=== PATIENT | male | born 1950 | race Caucasian/White ===

== ENCOUNTER → 2017-09-19 | Outpatient (CLI) | payer OTHER ==
[~2017-09-19] MED LIST: GADAVIST IV PRN
--- NOTE | 2017-09-20 08:03 | DIAGNOSTIC IMAGING REPORT ---
MRI OF THE BRAIN WITHOUT AND WITH IV CONTRAST CLINICAL HISTORY: Disorientation. Brain tumor removal at age 6. COMPARISON STUDY: None available at time of interpretation. TECHNIQUE: Utilizing a 1.5 Thea magnet and dedicated coil, multiplanar, multiecho imaging of the brain was performed pre and postcontrast administration. IV administration of 10.5 mL of Gadavist contrast was uneventful. FINDINGS: There are no foci of restricted diffusion. No acute intracranial hemorrhage, midline shift or mass effect is present. Mild ventricular dilatation is due to moderate atrophy. Basilar cisterns are patent. There are no extra axial collections. There is no intracranial mass or pathologic enhancement within the brain parenchyma. Of note, there is increased T2 signal with mild enhancement within the right sphenoid wing. There is associated bony hypertrophy. Similar findings extend into the right frontal, temporal and occipital bones with widening of the diploic space. No dural extension is noted. A right sided parietal craniotomy is noted. Scattered white matter T2 hyperintense foci suggest small vessel disease. IMPRESSION: 1. No acute intracranial findings. 2. Abnormal calvarial thickening/widening of the diploic space involving the right temporal, frontal, occipital and parietal bones, most pronounced within the sphenoid wing of the right temporal bone. This finding is nonspecific and may reflect postsurgical change or fibrous dysplasia. Correlation with prior imaging studies, if available, is suggested. In the absence of prior studies, a head CT may be of benefit in evaluation of the osseous findings. 3. Moderate atrophy. Electronically signed by: Joshua Sanford M.D. 09/20/2017 8:01 AM Dictated Date/Time: 09/19/2017 3:04 PM
== END | disposition home or self-care (01) ==
LOC: C.MRIBC 14:07
PROVIDERS: ATTEND Nurse Practitioner
DX: G31.9 Degenerative disease of nervous system, unspecified (principal); R94.02 Abnormal brain scan

== ENCOUNTER 2017-12-02 20:22 | Emergency (ER) | payer OTHER ==
[~2017-12-02] VITALS: Ht 175.3 cm; Wt 96.1 kg
[2017-12-02 20:28] VITALS: TEMP 36.7; Ht 175.3 cm; Wt 96.1 kg
[2017-12-02 21:06] LABS: BASO % 0.2 %; BASO ABS # 0.01 K/uL (0-0.2); EOS % 2.9 %; EOS ABS # 0.12 K/uL (0-0.5); HEMATOCRIT 35.3 % (42-52); HEMOGLOBIN 12.2 g/dL (14.0-18.0); IG# 0.02 K/uL (0.00-0.02); LYMPH % 18.7 %; LYMPH ABS # 0.77 K/uL (1.2-3.4); MEAN CELL VOLUME 94.9 fL (80-100); MEAN CORPUSCULAR HEMOGLOBIN 32.8 pg (25-34); MEAN CORPUSCULAR HGB CONC 34.6 g/dl (32-36); MEAN PLATELET VOLUME 9.7 fL (7.4-10.4); MONO ABS # 0.78 K/uL (0.11-0.59); NEUT % 58.7 %; NEUT ABS # 2.41 K/uL (1.4-6.5); PLATELET COUNT 153 K/uL (130-400); RED CELL DISTRIBUTION WIDTH CV 13.8 % (11.5-14.5); RED CELL DISTRIBUTION WIDTH SD 47.3 fL (36.4-46.3); WHITE BLOOD COUNT 4.11 K/uL (4.8-10.8)
--- NOTE | 2017-12-02 21:06 | EMERGENCY ROOM VISIT NOTE ---
History Report prepared by Cristela: Ramsey Pineda Under the Supervision of: Dr. Gerhard Russell D.O. First contact with patient: 20:37 Chief Complaint: HEMATURIA Stated Complaint: URINATING BLOOD History of Present Illness The patient is a 67 year old male who presents to the Emergency Room with complaints of intermittent hematuria beginning one hour ago after waking up. The patient reports that the urine appeared to be mostly blood. He denies pain with urination or in his back. He denies nausea, vomiting, or abdominal pain. The patient denies currently feeling the need to urinate. He states that he does not currently take blood thinners and denies issues with his prostate. He notes a tumor removal in 1961. He notes a history of rheumatoid arthritis. He states that Mati Cason PA-C is his PCP. Source of History: patient Onset: one hour ago Quality: other (hematuria) Timing: intermittent Modifying Factors (Relieving): other (none) Associated Symptoms: No nausea, No vomiting, No abdominal pain, No back pain Note: denies pain with urination Review of Systems See HPI for pertinent positives & negatives. A total of 10 systems reviewed and were otherwise negative. Past Medical & Surgical Medical Problems: (1) Rheumatoid arthritis Family History Patient reports no known family medical history. Social History Smoking Status: Never Smoker Current/Historical Medications Scheduled Allopurinol (Zyloprim), 100 MG PO DAILY Cholecalciferol (Vitamin D3), 2,000 UNITS PO DAILY Ciprofloxacin Hcl (Cipro), 500 MG PO BID Donepezil HCl (Aricept), 5 MG PO DAILY Losartan Potassium (Losartan Potassium), 25 MG PO DAILY Pravastatin Sod (Pravastatin Sodium), 40 MG PO DAILY Allergies Coded Allergies: No Known Allergies (Unverified , 12/02/17) Physical Exam Vital Signs Date Time Temp Pulse Resp B/P (MAP) Pulse Ox O2 Delivery O2 Flow Rate FiO2 12/03/17 00:17 87 18 171/106 98 12/02/17 22:35 86 16 166/81 98 Room Air 12/02/17 20:28 36.7 99 18 184/90 97 Room Air Physical Exam GENERAL: Patient is awake, alert, and in no acute distress. Patient is resting comfortably and showing no signs of anxiety EYES: The conjunctivae are clear. The pupils are round and reactive. EARS, NOSE, MOUTH AND THROAT: The nose is without any evidence of any deformity. Mucous membranes are moist. Tongue is midline NECK: The neck is nontender and supple. RESPIRATORY: Normal respiratory effort is noted. There is no evidence of wheezing rhonchi or rales to auscultation. CARDIOVASCULAR: Regular rate and rhythm noted. There no murmurs rubs or gallops normal S1 normal S2 GASTROINTESTINAL: The abdomen is soft. Bowel sounds are present in all quadrants. Abdomen is nontender. BACK: No midline tenderness or or step-off noted range of motion in flexion extension as well as rotation no signs of muscle spasm noted. MUSCULOSKELETAL/EXTREMITIES: There is no evidence of gross deformity. Full range of motion is noted in the hips and shoulders. SKIN: There is no obvious evidence of any rash. There are no petechiae, pallor or cyanosis noted. NEUROLOGIC: Patient is awake alert and oriented x3. Strength is symmetric. Patellar reflexes are 2+ bilaterally. : Circumcised male genitalia appreciated. No bleeding noted. Testicles are descended and nontender bilaterally. Medical Decision & Procedures Laboratory Results 12/02/17 20:50 Red Blood Count 3.72, Mean Corpuscular Volume 94.9, Mean Corpuscular Hemoglobin 32.8, Mean Corpuscular Hemoglobin Concent 34.6, Mean Platelet Volume 9.7, Neutrophils (%) (Auto) 58.7, Lymphocytes (%) (Auto) 18.7, Monocytes (%) (Auto) 19.0, Eosinophils (%) (Auto) 2.9, Basophils (%) (Auto) 0.2, Neutrophils # (Auto ) 2.41, Lymphocytes # (Auto) 0.77, Monocytes # (Auto) 0.78, Eosinophils # (Auto ) 0.12, Basophils # (Auto) 0.01 12/02/17 20:50 Test 12/02/17 20:47 12/02/17 20:50 Urine Color RED Urine Appearance CLOUDY (CLEAR) Urine pH (4.5-7.5) Urine Specific Langlois 1.023 (1.000-1.030) Urine Protein POS (NEG) Urine Glucose (UA) (NEG) Urine Ketones (NEG) Urine Occult Blood (NEG) Urine Nitrite (NEG) Urine Bilirubin (NEG) Urine Urobilinogen (NEG) Urine Leukocyte Esterase (NEG) Urine RBC >30 /hpf (0-4) Urine WBC 10-30 /hpf (0-5) Urine Epithelial Cells 0-5 /lpf (0-5) Urine Bacteria (NEG) Urine Hyaline Casts 1-5 /lpf (0-5) White Blood Count 4.11 K/uL (4.8-10.8) Red Blood Count 3.72 M/uL (4.7-6.1) Hemoglobin 12.2 g/dL (14.0-18.0) Hematocrit 35.3 % (42-52) Mean Corpuscular Volume 94.9 fL (80-100) Mean Corpuscular Hemoglobin 32.8 pg (25-34) Mean Corpuscular Hemoglobin Concent 34.6 g/dl (32-36) Platelet Count 153 K/uL (130-400) Mean Platelet Volume 9.7 fL (7.4-10.4) Neutrophils (%) (Auto) 58.7 % Lymphocytes (%) (Auto) 18.7 % Monocytes (%) (Auto) 19.0 % Eosinophils (%) (Auto) 2.9 % Basophils (%) (Auto) 0.2 % Neutrophils # (Auto) 2.41 K/uL (1.4-6.5) Lymphocytes # (Auto) 0.77 K/uL (1.2-3.4) Monocytes # (Auto) 0.78 K/uL (0.11-0.59) Eosinophils # (Auto) 0.12 K/uL (0-0.5) Basophils # (Auto) 0.01 K/uL (0-0.2) RDW Standard Deviation 47.3 fL (36.4-46.3) RDW Coefficient of Variation 13.8 % (11.5-14.5) Immature Granulocyte % (Auto) 0.5 % Immature Granulocyte # (Auto) 0.02 K/uL (0.00-0.02) Prothrombin Time 11.0 SECONDS (9.0-12.0) Prothromb Time International Ratio 1.0 (0.9-1.1) Activated Partial Thromboplast Time 26.0 SECONDS (21.0-31.0) Partial Thromboplastin Ratio 1.0 Anion Gap 9.0 mmol/L (3-11) Est Creatinine Clear Calc Drug Dose 51.0 ml/min Estimated GFR () 50.1 Estimated GFR (Non- 43.3 BUN/Creatinine Ratio 11.0 (10-20) Calcium Level 9.0 mg/dl (8.5-10.1) Total Bilirubin 0.5 mg/dl (0.2-1) Direct Bilirubin 0.2 mg/dl (0-0.2) Aspartate Amino Transf (AST/SGOT) 23 U/L (15-37) Alanine Aminotransferase (ALT/SGPT) 22 U/L (12-78) Alkaline Phosphatase 74 U/L (45-117) Total Creatine Kinase 198 U/L (39-308) Total Protein 7.5 gm/dl (6.4-8.2) Albumin 3.6 gm/dl (3.4-5.0) Laboratory results per my review. Medications Administered Medications (Trade) Dose Ordered Sig/Namita Route Start Time Stop Time Status Last Admin Dose Admin Ciprofloxacin (Cipro Tab) 500 mg NOW STAT PO 12/02/17 23:36 12/02/17 23:37 DC 12/03/17 00:02 500 MG Ciprofloxacin (Cipro 500MG Home Pack) 1 homepack UD ONCE PO 12/02/17 23:45 12/02/17 23:46 DC 12/03/17 00:02 1 HOMEPACK ED Course 0: The patient was evaluated in room A11B. A complete history and physical examination were performed. 2336: Ordered Ciprofloxacin 500 mg PO 2345: Upon reevaluation, the patient is resting. I discussed the results and treatment plan with him. He verbalized agreement of the treatment plan. He was discharged home. Ordered Ciprofloxacin 1 homepack PO. Medical Decision Differential diagnosis: Etiologies such as renal colic, appendicitis, diverticulitis, mesenteric ischemia, aortic pathology, infections, inflammatory bowel disease, PUD, biliary pathology, UTI, as well as others were entertained. Nursing notes reviewed. The patient is a 67-year-old male who presented to the emergency department for an evaluation of hematuria. The patient did not have any other symptoms such as back pain or abdominal discomfort. I discussed patient's laboratory results with him. He required a Laboy catheter which did continue to drain urine. The patient was instructed to follow-up with urology. He was started on antibiotic. I discussed his case with the emergency department pillowcase folder. They will attempt to get the patient outpatient follow-up schedule as soon as possible. Medication Reconcilliation Current Medication List: was personally reviewed by me Blood Pressure Screening Patient's blood pressure: Elevated blood pressure Blood pressure disposition: Referred to PCP Impression Primary Impression: Hematuria Additional Impression: UTI (urinary tract infection) Scribe Attestation The scribe's documentation has been prepared under my direction and personally reviewed by me in its entirety. I confirm that the note above accurately reflects all work, treatment, procedures, and medical decision making performed by me. Departure Information Dispostion Home / Self-Care Prescriptions Ciprofloxacin Hcl (CIPRO) 500 Mg Tab 500 MG PO BID, #14 TAB Prov: Gerhard Russell, DO 12/02/17 Referrals Mati Cason PA-C (PCP) Forms HOME CARE DOCUMENTATION FORM, IMPORTANT VISIT INFORMATION, WORK / SCHOOL INSTRUCTIONS Patient Instructions My [facility] Additional Instructions Follow-up with the urologist as soon as possible. Drink plenty clear liquids. Continue all medications as prescribed. Problem Qualifiers Primary Impression: Hematuria Hematuria type: unspecified type Qualified Codes: R31.9 - Hematuria, unspecified Additional Impression: UTI (urinary tract infection) Urinary tract infection type: site unspecified Hematuria presence: with hematuria Qualified Codes: N39.0 - Urinary tract infection, site not specified ; R31.9 - Hematuria, unspecified
[2017-12-02 21:27] LABS: ALBUMIN 3.6 gm/dl (3.4-5.0); CREATININE 1.63 mg/dl (0.60-1.40); POTASSIUM 3.8 mmol/L (3.5-5.1); TOTAL PROTEIN 7.5 gm/dl (6.4-8.2)
[2017-12-02] MEDS ORDERED: PRVC/40 PO (21:38)
[2017-12-02] MEDS ORDERED: CZR25 PO (21:39)
[2017-12-02] MEDS ORDERED: ALLO100T PO (21:39)
[2017-12-02] MEDS ORDERED: CHOL20007 PO (21:40)
[2017-12-02] MEDS ORDERED: DONE5TAB9 PO (21:41)
[2017-12-02] MEDS ORDERED: CIPR-255 PO (23:36)
[2017-12-02] MEDS ORDERED: CIPROFLOXACIN 500 MG TAB PO STA (23:36)
[2017-12-02] MEDS ORDERED: CIPROFLOXACIN 500MG HOME PACK PO ONE (23:45)
[2017-12-03 00:17] VITALS: BP 171/106; PULSE 87; O2SAT 98
== END 2017-12-03 00:17 | disposition home or self-care (01) ==
LOC: C.EDB 20:23 → C.EDA 12-03 00:17
DX: R31.9 Hematuria, unspecified (principal); N39.0 Urinary tract infection, site not specified; M06.9 Rheumatoid arthritis, unspecified

== ENCOUNTER 2017-12-04 06:36 | Inpatient (IN) | payer OTHER ==
[~2017-12-04] VITALS: Ht 175.3 cm; Wt 104.2 kg
[~2017-12-04 06:36] MED LIST changes: +ALLO100T PO; +CHOL20007 PO; +CIPR-255 PO; +CZR25 PO; +DONE5TAB9 PO; -GADAVIST IV PRN; +PRVC/40 PO
--- NOTE | 2017-12-04 06:52 | EMERGENCY ROOM VISIT NOTE ---
History Report prepared by Cristela: Chadd Escobar Under the Supervision of: Dr. Umesh Souza M.D. First contact with patient: 06:42 Chief Complaint: HEMATURIA Stated Complaint: PEEING BLOOD,BURNING,HAS MISTRY,CONFUSION History of Present Illness The patient is a 67 year old male who presents to the Emergency Room with complaints of persistent hematuria and penile "burning" that began on Monday night, 2 days ago. The patient's daughter at bedside notes that the patient called her Monday night as he was urinating "pure blood." They came to the emergency department and he had a Mistry placed. The patient has since complained of "burning" at the tip of his penis. The Mistry does not seem to be draining appropriately as he can feel the need to void, but the bag is not filling. The catheter bad is full of gross blood at this time. Source of History: patient Onset: 2 days ago Position: other () Quality: burning Timing: other (persistent) Note: Hematuria Review of Systems See HPI for pertinent positives & negatives. A total of 10 systems reviewed and were otherwise negative. Past Medical & Surgical Medical Problems: (1) Hyponatremia (2) Renal mass, left (3) Rheumatoid arthritis Family History Patient reports no known family medical history. Social History Smoking Status: Never Smoker Drug Use: none Occupation Status: retired Current/Historical Medications Scheduled Allopurinol (Zyloprim), 100 MG PO DAILY Cholecalciferol (Vitamin D3), 2,000 UNITS PO DAILY Ciprofloxacin Hcl (Cipro), 500 MG PO BID Donepezil HCl (Aricept), 5 MG PO DAILY Losartan Potassium (Losartan Potassium), 25 MG PO DAILY Pravastatin Sod (Pravastatin Sodium), 40 MG PO DAILY Allergies Coded Allergies: No Known Allergies (Unverified , 12/04/17) Physical Exam Vital Signs Date Time Temp Pulse Resp B/P (MAP) Pulse Ox O2 Delivery O2 Flow Rate FiO2 12/04/17 10:27 82 19 166/86 96 Room Air 12/04/17 08:51 88 19 154/78 99 Room Air 12/04/17 06:50 98 12/04/17 06:43 36.6 93 16 166/89 98 Room Air Physical Exam GENERAL: Awake, alert, well-appearing, in no acute distress HENT: Normocephalic, atraumatic. Oropharynx unremarkable. EYES: Normal conjunctiva. Sclera non-icteric. NECK: Supple. No nuchal rigidity. FROM. No JVD. RESPIRATORY: Clear to auscultation. CARDIAC: Regular rate, normal rhythm. Extremities warm and well perfused. Pulses equal. ABDOMEN: Soft, non-distended. No tenderness to palpation. No rebound or guarding. No masses. RECTAL: Deferred. MUSCULOSKELETAL: Chest examination reveals no tenderness. The back is symmetrical on inspection without obvious abnormality. There is no CVA tenderness to palpation. No joint edema. LOWER EXTREMITIES: Calves are equal size bilaterally and non-tender. No edema. No discoloration. NEURO: Normal sensorium. No sensory or motor deficits noted. SKIN: No rash or jaundice noted. : There is a Mistry Catheter in place draining gross blood. Medical Decision & Procedures ER Provider Diagnostic Interpretation: Radiology results as stated below per my review and radiologist interpretation: CT SCAN OF THE BRAIN WITHOUT IV CONTRAST CLINICAL HISTORY: Change in mental status. COMPARISON STUDY: MRI of the brain dated 09/19/2017. TECHNIQUE: Unenhanced axial CT scan of the brain is performed from the vertex to the skull base. A dose lowering technique was utilized adhering to the principles of ALARA. CT DOSE: 614.27 mGy.cm FINDINGS: Brain parenchyma: There are age-related involutional changes noting mild subcortical and periventricular microangiopathic change. There is no hemorrhage, mass effect, or evidence of acute territorial ischemia by CT criteria. Mayo-white matter is preserved. No extra-axial fluid collection is seen. Ventricles, sulci, cisterns: Prominent secondary to involutional change. Intracranial vasculature: There is atherosclerotic calcification of the cavernous carotid and vertebral arteries. Calvarium: The calvarium appears intact. There is extensive osseous abnormality seen involving the right temporal and parietal bone extends into the right sphenoid and facial bones there is widening of the ductal space with significant groundglass change. There is also mild thickening and sclerosis. Sinuses and mastoids: The visualized paranasal sinuses are clear. The mastoid air cells are well pneumatized. Orbits: The bony orbits are grossly intact. IMPRESSION: 1. There is no hemorrhage, mass effect, or evidence of acute territorial ischemia by CT criteria. 2. There is significant abnormality of the right calvarium and facial bones as T12 above. 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 Metastatic disease is considered much less likely and correlation with the patient's history will be required. This was also seen on the 09/19/2017 MRI. Electronically signed by: Lee Koehler M.D. 12/04/2017 10:50 AM Dictated Date/Time: 12/04/2017 10:37 AM SINGLE VIEW CHEST CLINICAL HISTORY: Renal mass. FINDINGS: 2 AP, portable, upright chest radiographs are obtained. No prior studies are available for comparison at the time of dictation. The examination is significantly degraded by portable technique and patient rotation. The heart is enlarged and there is atherosclerotic calcification of the thoracic aorta. The pulmonary vasculature is noncongested. The lungs and pleural spaces are clear. No pneumothorax is seen. The skeletal structures are osteopenic. The bony thorax is grossly intact. IMPRESSION: Cardiomegaly with no acute cardiopulmonary abnormality. Electronically signed by: Lee Koehler M.D. 12/04/2017 10:57 AM Dictated Date/Time: 12/04/2017 10:55 AM KUB HISTORY: Pt c/o hematuria COMPARISON: None. FINDINGS: The bowel gas pattern is unremarkable. There are no dilated loops of small bowel to suggest an obstruction. No renal calculi. No ureteral calculi. Calcifications in the deep pelvis likely represent phleboliths. Moderate osteoarthritis within the bilateral hips. No pneumoperitoneum or pneumatosis. IMPRESSION: No renal or ureteral stones. Electronically signed by: Pierre Snyder M.D. 12/04/2017 8:43 AM Dictated Date/Time: 12/04/2017 8:02 AM ULTRASOUND KIDNEYS AND BLADDER CLINICAL HISTORY: Hematuria. COMPARISON STUDY: Abdominal radiograph dated 12/04/2017. TECHNIQUE: Real-time, grayscale, and color flow sonography of the kidneys and bladder is performed. Images are reviewed in the transverse and longitudinal planes. FINDINGS: Kidneys: The kidneys are normal in size and echotexture. The right kidney measures 12.0 cm in length and the left kidney measures 15.4 cm in length. There is no hydronephrosis. No shadowing renal calculi are identified. There is a heterogeneous vascular mass lesion arising from the lower pole of the right kidney which measures 8.7 x 7.9 x 7.2 cm.. No perinephric fluid is identified. Bladder: The bladder is partially decompressed around a Mistry catheter. There are shadowing bladder calculi as well as intraluminal debris. IMPRESSION: 1. The kidneys are normal in size and without hydronephrosis. 2. There is an 8.7 cm complex solid mass lesion arising from the lower pole of the left kidney. This should be considered renal cell carcinoma until proven otherwise. Follow-up with a contrast-enhanced abdominal CT scan is recommended for further assessment. 3. The bladder is partially decompressed around a Mistry catheter. 4. Intraluminal debris and shadowing calcifications are noted within the bladder lumen. Electronically signed by: Lee Koehler M.D. 12/04/2017 8:52 AM Dictated Date/Time: 12/04/2017 8:49 AM MRI OF THE ABDOMEN COMBO CLINICAL HISTORY: Renal mass. Hematuria. COMPARISON STUDY: Renal ultrasound dated 12/04/2017. TECHNIQUE: MRI of the abdomen is performed transverse T1 and T2-weighted sequences in the axial and coronal planes. Contrast enhanced sequences were acquired following the IV administration of 10.5 cc of Gadavist. Subtraction imaging was utilized. The examination is degraded by motion artifact. FINDINGS: Lower chest: No pleural effusion is identified. The heart is normal in size. Liver: The liver is normal in size, contour, and signal intensity. No intrahepatic biliary ductal dilatation is seen. The hepatic veins and portal veins are patent. Gallbladder: Unremarkable. Spleen: Normal in size and signal intensity. Pancreas: Unremarkable. Adrenal glands: Unremarkable. Kidneys: The kidneys demonstrate mild cortical atrophy and are without hydronephrosis. The kidneys enhance symmetrically. There is a heterogeneous and multilobulated mass lesion arising from/replacing the lower pole of the left kidney. This measures approximately 11 x 12 x 7.5 cm and demonstrates foci of central necrosis. This invades the left renal pelvis as well as the left renal hilum, and also appears to extend into the left renal vein. There is nonspecific thickening of the left renal fascia. Abdominal aorta: Normal in course and caliber. Bowel: Visualized portions of the small bowel and colon show no evidence of obstruction. Peritoneum: There is no abdominal ascites. Lymphadenopathy: A left periaortic noted. Measures 2.8 x 1.8 cm. Skeletal structures: No destructive bony lesion is clearly identified. IMPRESSION: 1. Motion compromised examination. 2. There is an approximately 12 cm heterogeneous mass lesion arising from/replacing the lower pole of left kidney as above. This should be considered renal cell carcinoma until proven otherwise. 3. The mass lesion invades the left renal pelvis and also likely invades the left renal vein. 4. Pathologically enlarged left periaortic nodes are consistent with regional metastasis. 5. Additional findings as above. Electronically signed by: Lee Koehler M.D. 12/04/2017 1:08 PM Dictated Date/Time: 12/04/2017 12:55 PM Laboratory Results Test 12/04/17 06:55 12/04/17 07:20 Immature Granulocyte % (Auto) 0.3 % White Blood Count 7.22 K/uL (4.8-10.8) Red Blood Count 3.64 M/uL (4.7-6.1) Hemoglobin 11.9 g/dL (14.0-18.0) Hematocrit 34.6 % (42-52) Mean Corpuscular Volume 95.1 fL (80-100) Mean Corpuscular Hemoglobin 32.7 pg (25-34) Mean Corpuscular Hemoglobin Concent 34.4 g/dl (32-36) Platelet Count 153 K/uL (130-400) Mean Platelet Volume 10.2 fL (7.4-10.4) Neutrophils (%) (Auto) 80.5 % Lymphocytes (%) (Auto) 6.8 % Monocytes (%) (Auto) 12.0 % Eosinophils (%) (Auto) 0.3 % Basophils (%) (Auto) 0.1 % Neutrophils # (Auto) 5.81 K/uL (1.4-6.5) Lymphocytes # (Auto) 0.49 K/uL (1.2-3.4) Monocytes # (Auto) 0.87 K/uL (0.11-0.59) Eosinophils # (Auto) 0.02 K/uL (0-0.5) Basophils # (Auto) 0.01 K/uL (0-0.2) Immature Granulocyte # (Auto) 0.02 K/uL (0.00-0.02) Total Bilirubin 1.1 mg/dl (0.2-1) Direct Bilirubin mg/dl (0-0.2) Aspartate Amino Transf (AST/SGOT) U/L (15-37) Alanine Aminotransferase (ALT/SGPT) 20 U/L (12-78) Alkaline Phosphatase 76 U/L (45-117) Total Protein 7.6 gm/dl (6.4-8.2) Albumin 3.5 gm/dl (3.4-5.0) Lipase 1245 U/L (73-393) Urine Color RED Urine Appearance CLOUDY (CLEAR) Urine pH 7.0 (4.5-7.5) Urine Specific [place] 1.020 (1.000-1.030) Urine Protein 3+ (NEG) Urine Glucose (UA) TRACE (NEG) Urine Ketones NEG (NEG) Urine Occult Blood 3+ (NEG) Urine Nitrite NEG (NEG) Urine Bilirubin NEG (NEG) Urine Urobilinogen NEG (NEG) Urine Leukocyte Esterase NEG (NEG) Urine RBC >30 /hpf (0-4) Urine WBC >30 /hpf (0-5) Urine Epithelial Cells 0-5 /lpf (0-5) Urine Bacteria 1+ (NEG) Labs reviewed by ED physician. Medications Administered Medications (Trade) Dose Ordered Sig/Namita Route Start Time Stop Time Status Last Admin Dose Admin Sodium Chloride 500 ml @ 999 mls/hr Q31M STAT IV 12/04/17 08:05 12/04/17 08:35 DC 12/04/17 08:50 999 MLS/HR Sodium Chloride 1,000 ml @ 999 mls/hr Q1H1M STAT IV 12/04/17 09:54 12/04/17 10:54 DC 12/04/17 10:25 999 MLS/HR Lorazepam (Ativan Tab) 1 mg NOW STAT SL 12/04/17 09:59 12/04/17 10:00 DC 12/04/17 10:23 1 MG ED Course 0644: Past medical records reviewed. The patient was evaluated in room A10. A complete history and physical examination was performed. 0805: Ordered Sodium Chloride 500 mL @ 999 mL/hr IV. 0711: The patient is stable at this time. 0729: The nursing staff has changed the patient's Mistry, it immediately started draining blood. 0924: I discussed the case with Kenisha Hernández - Urology [facility]. She would like a CT of the abdomen/pelvis w/ and w/o contrast. 0954: Ordered Sodium Chloride 1000 mL @ 999 mL/hr IV. 0959: Ordered Lorazepam 1 mg SL. 1009: I discussed the case with Catrachita Ju Dingist. She will evaluate the patient for further treatment. Medical Decision Differential diagnosis: Etiologies such as metabolic, urinary tract infection, infection, hypo/ hyperglycemia, electrolyte abnormalities, cardiac sources, toxicologic, neurologic, as well as others were entertained. This is a 67-year-old male who presents emergency department with a large amount of bloody output from his Mistry catheter. Based on this the patient was sent for an ultrasound he also had his Mistry catheter change with improvement in his symptoms. His ultrasound was concerning for renal cell carcinoma. Based on this I did discuss the case with urology who asked that the patient receive an MRI. After discussing the patient further with both the patient as well as his family they are concerned that he is acutely altered compared to his baseline. He was sent for CAT scan of the head which was concerning for dysplasia of the bone. I did discuss the case with the hospitalist service who agreed to admit the patient. Patient and family were in agreement with the treatment plan. Medication Reconcilliation Current Medication List: was personally reviewed by me Blood Pressure Screening Patient's blood pressure: Elevated blood pressure Referred to hospitalist. Consults Time Called: 09 Consulting Physician: Kenisha Bloom PA-C Returned Call: [phone] I discussed the case with Kenisha Bloom PA-C. She would like a CT of the abdomen/pelvis w/ and w/o contrast. Additional Consults: Time Called: 1006 Consulted Physician: Catrachita Mc. Returned Call: [phone] Additional Comments: I discussed the case with Catrachita Mc. She will evaluate the patient for further treatment. Impression Primary Impression: Altered mental status Additional Impressions: Hematuria Kidney mass Scribe Attestation The scribe's documentation has been prepared under my direction and personally reviewed by me in its entirety. I confirm that the note above accurately reflects all work, treatment, procedures, and medical decision making performed by me. Departure Information Dispostion Being Evaluated By Hospitalist Referrals Mati Cason PA-C (PCP) Patient Instructions My [facility] Problem Qualifiers Primary Impression: Altered mental status Altered mental status type: unspecified Qualified Codes: R41.82 - Altered mental status, unspecified Additional Impressions: Hematuria Hematuria type: unspecified type Qualified Codes: R31.9 - Hematuria, unspecified
[2017-12-04 07:17] LABS: BASO % 0.1 %; BASO ABS # 0.01 K/uL (0-0.2); EOS % 0.3 %; EOS ABS # 0.02 K/uL (0-0.5); HEMATOCRIT 34.6 % (42-52); HEMOGLOBIN 11.9 g/dL (14.0-18.0); IG# 0.02 K/uL (0.00-0.02); LYMPH % 6.8 %; LYMPH ABS # 0.49 K/uL (1.2-3.4); MEAN CELL VOLUME 95.1 fL (80-100); MEAN CORPUSCULAR HEMOGLOBIN 32.7 pg (25-34); MEAN CORPUSCULAR HGB CONC 34.4 g/dl (32-36); MEAN PLATELET VOLUME 10.2 fL (7.4-10.4); MONO ABS # 0.87 K/uL (0.11-0.59); NEUT % 80.5 %; NEUT ABS # 5.81 K/uL (1.4-6.5); PLATELET COUNT 153 K/uL (130-400); RED CELL DISTRIBUTION WIDTH CV 14.1 % (11.5-14.5); RED CELL DISTRIBUTION WIDTH SD 48.6 fL (36.4-46.3); WHITE BLOOD COUNT 7.22 K/uL (4.8-10.8)
[2017-12-04 07:55] LABS: ALBUMIN 3.5 gm/dl (3.4-5.0); CALCIUM 8.7 mg/dl (8.5-10.1); CREATININE 1.95 mg/dl (0.60-1.40); TOTAL PROTEIN 7.6 gm/dl (6.4-8.2)
[2017-12-04] MEDS ORDERED: SODIUM CHLORIDE 0.9% 500ML 500 ML IV STA (08:05)
--- NOTE | 2017-12-04 08:44 | DIAGNOSTIC IMAGING REPORT ---
KUB HISTORY: Pt c/o hematuria COMPARISON: None. FINDINGS: The bowel gas pattern is unremarkable. There are no dilated loops of small bowel to suggest an obstruction. No renal calculi. No ureteral calculi. Calcifications in the deep pelvis likely represent phleboliths. Moderate osteoarthritis within the bilateral hips. No pneumoperitoneum or pneumatosis. IMPRESSION: No renal or ureteral stones. Electronically signed by: Pierre Snyder M.D. 12/04/2017 8:43 AM Dictated Date/Time: 12/04/2017 8:02 AM
--- NOTE | 2017-12-04 08:53 | DIAGNOSTIC IMAGING REPORT ---
ULTRASOUND KIDNEYS AND BLADDER CLINICAL HISTORY: Hematuria. COMPARISON STUDY: Abdominal radiograph dated 12/04/2017. TECHNIQUE: Real-time, grayscale, and color flow sonography of the kidneys and bladder is performed. Images are reviewed in the transverse and longitudinal planes. FINDINGS: Kidneys: The kidneys are normal in size and echotexture. The right kidney measures 12.0 cm in length and the left kidney measures 15.4 cm in length. There is no hydronephrosis. No shadowing renal calculi are identified. There is a heterogeneous vascular mass lesion arising from the lower pole of the right kidney which measures 8.7 x 7.9 x 7.2 cm.. No perinephric fluid is identified. Bladder: The bladder is partially decompressed around a Laboy catheter. There are shadowing bladder calculi as well as intraluminal debris. IMPRESSION: 1. The kidneys are normal in size and without hydronephrosis. 2. There is an 8.7 cm complex solid mass lesion arising from the lower pole of the left kidney. This should be considered renal cell carcinoma until proven otherwise. Follow-up with a contrast-enhanced abdominal CT scan is recommended for further assessment. 3. The bladder is partially decompressed around a Laboy catheter. 4. Intraluminal debris and shadowing calcifications are noted within the bladder lumen. Electronically signed by: Lee Koehler M.D. 12/04/2017 8:52 AM Dictated Date/Time: 12/04/2017 8:49 AM
[2017-12-04] MEDS ORDERED: OPTIRAY 320 IV PRN (09:15)
[2017-12-04] MEDS ORDERED: SODIUM CHLORIDE 0.9% 1000ML 1,000 ML IV STA (09:54)
[2017-12-04] MEDS ORDERED: LORAZEPAM 1 MG TAB SL STA (09:59)
--- NOTE | 2017-12-04 10:51 | DIAGNOSTIC IMAGING REPORT ---
CT SCAN OF THE BRAIN WITHOUT IV CONTRAST CLINICAL HISTORY: Change in mental status. COMPARISON STUDY: MRI of the brain dated 09/19/2017. TECHNIQUE: Unenhanced axial CT scan of the brain is performed from the vertex to the skull base. A dose lowering technique was utilized adhering to the principles of ALARA. CT DOSE: 614.27 mGy.cm FINDINGS: Brain parenchyma: There are age-related involutional changes noting mild subcortical and periventricular microangiopathic change. There is no hemorrhage, mass effect, or evidence of acute territorial ischemia by CT criteria. Mayo-white matter is preserved. No extra-axial fluid collection is seen. Ventricles, sulci, cisterns: Prominent secondary to involutional change. Intracranial vasculature: There is atherosclerotic calcification of the cavernous carotid and vertebral arteries. Calvarium: The calvarium appears intact. There is extensive osseous abnormality seen involving the right temporal and parietal bone extends into the right sphenoid and facial bones there is widening of the ductal space with significant groundglass change. There is also mild thickening and sclerosis. Sinuses and mastoids: The visualized paranasal sinuses are clear. The mastoid air cells are well pneumatized. Orbits: The bony orbits are grossly intact. IMPRESSION: 1. There is no hemorrhage, mass effect, or evidence of acute territorial ischemia by CT criteria. 2. There is significant abnormality of the right calvarium and facial bones as T12 above. 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 Metastatic disease is considered much less likely and correlation with the patient's history will be required. This was also seen on the 09/19/2017 MRI. Electronically signed by: Lee Koehler M.D. 12/04/2017 10:50 AM Dictated Date/Time: 12/04/2017 10:37 AM
--- NOTE | 2017-12-04 10:58 | DIAGNOSTIC IMAGING REPORT ---
SINGLE VIEW CHEST CLINICAL HISTORY: Renal mass. FINDINGS: 2 AP, portable, upright chest radiographs are obtained. No prior studies are available for comparison at the time of dictation. The examination is significantly degraded by portable technique and patient rotation. The heart is enlarged and there is atherosclerotic calcification of the thoracic aorta. The pulmonary vasculature is noncongested. The lungs and pleural spaces are clear. No pneumothorax is seen. The skeletal structures are osteopenic. The bony thorax is grossly intact. IMPRESSION: Cardiomegaly with no acute cardiopulmonary abnormality. Electronically signed by: Lee Koehler M.D. 12/04/2017 10:57 AM Dictated Date/Time: 12/04/2017 10:55 AM
[2017-12-04] MEDS ORDERED: ACETAMINOPHEN 325 MG TAB PO PRN (11:30)
[2017-12-04] MEDS ORDERED: LORAZEPAM 2 MG/ML 1 ML VIAL IV PRN (12:00)
[2017-12-04] MEDS ORDERED: GABAPENTIN 600 MG TAB PO SCH (12:00)
[2017-12-04] MEDS ORDERED: GADAVIST IV PRN (13:00)
--- NOTE | 2017-12-04 13:10 | DIAGNOSTIC IMAGING REPORT ---
MRI OF THE ABDOMEN COMBO CLINICAL HISTORY: Renal mass. Hematuria. COMPARISON STUDY: Renal ultrasound dated 12/04/2017. TECHNIQUE: MRI of the abdomen is performed transverse T1 and T2-weighted sequences in the axial and coronal planes. Contrast enhanced sequences were acquired following the IV administration of 10.5 cc of Gadavist. Subtraction imaging was utilized. The examination is degraded by motion artifact. FINDINGS: Lower chest: No pleural effusion is identified. The heart is normal in size. Liver: The liver is normal in size, contour, and signal intensity. No intrahepatic biliary ductal dilatation is seen. The hepatic veins and portal veins are patent. Gallbladder: Unremarkable. Spleen: Normal in size and signal intensity. Pancreas: Unremarkable. Adrenal glands: Unremarkable. Kidneys: The kidneys demonstrate mild cortical atrophy and are without hydronephrosis. The kidneys enhance symmetrically. There is a heterogeneous and multilobulated mass lesion arising from/replacing the lower pole of the left kidney. This measures approximately 11 x 12 x 7.5 cm and demonstrates foci of central necrosis. This invades the left renal pelvis as well as the left renal hilum, and also appears to extend into the left renal vein. There is nonspecific thickening of the left renal fascia. Abdominal aorta: Normal in course and caliber. Bowel: Visualized portions of the small bowel and colon show no evidence of obstruction. Peritoneum: There is no abdominal ascites. Lymphadenopathy: A left periaortic noted. Measures 2.8 x 1.8 cm. Skeletal structures: No destructive bony lesion is clearly identified. IMPRESSION: 1. Motion compromised examination. 2. There is an approximately 12 cm heterogeneous mass lesion arising from/replacing the lower pole of left kidney as above. This should be considered renal cell carcinoma until proven otherwise. 3. The mass lesion invades the left renal pelvis and also likely invades the left renal vein. 4. Pathologically enlarged left periaortic nodes are consistent with regional metastasis. 5. Additional findings as above. Electronically signed by: Lee Koehler M.D. 12/04/2017 1:08 PM Dictated Date/Time: 12/04/2017 12:55 PM
[2017-12-04] MEDS: THIAMINE HCL 100 MG TAB PO SCH (13:45)
[2017-12-04] MEDS ORDERED: GABAPENTIN 1200MG LOADING DOSE PO ONE (14:00)
--- NOTE | 2017-12-04 14:00 | History and Physical ---
History & Physical Date & Time of Service: Dec 04, 2017 at 11:47 Chief Complaint: Peeing Blood,Burning,Has Laboy,Confusion Primary Care Physician: Mati Cason PA-C History of Present Illness Source: patient, family (Jovani Mcdermott at bedside) 67 y/o male presents to ED today with continued hematuria and confusion. Two days ago, pt was seen in the ED with new-onset of gross hematuria. Apparently evaluated and sent home from the ED with a Laboy and placed on Cipro and instructed to follow-up with urology outpatient. Urine culture from this visit was contaminated. Pt is currently very confused so history obtained from niece , Sharron, who is patient's POA. No known history of hematuria or prostate issues prior to current episode of symptoms. Pt has had continued hematuria over the weekend and the Laboy seems to be intermittently functioning. Niece reports pt will develop significant pressure over the bladder and the urge to urinate then has intermittent output in the Laboy bag. She describes the output as thick and frankly bloody since pt was seen in ED. 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 He lives alone but would go to mother's house twice daily to assist with her care. Currently, pt is seen in the ED and is agitated and confused. He reports that he "just got [place] [address]" and now wants to go home. Since Laboy was changed in ED today, he reports relief of the suprapubic pressure and urge to urinate that he has been having intermittently for past two days. Denies N/V , abdominal pain. No documented fevers. Appetite has been good - pt asking to eat when seen. Niece reports that patient was sweating yesterday - she attributes this to the fact that she did not allow him to drink alcohol yesterday when he typically drinks at least 4-8 beers/day. Pt does have a history of underlying dementia diagnosed within the past six months. Niece reports that the onset of confusion was quite acute and that pt's mental status often waxes and wanes since diagnosis. She is not sure that pt understands that his mother yesterday. There is a question of Lewy Body Dementia vs Parkinson's that is being evaluated by neurology. Past Medical/Surgical History Medical Problems: (1) Hematuria (2) Hyponatremia (3) Renal mass, left (4) Rheumatoid arthritis (5) UTI (urinary tract infection) Past Medical History: 1. Meningioma (frontal region?) - resected as a child (1961?) 2. Gout/Pseudogout 3. Dementia - diagnosed within past six months 4. Atrial fibrillation 5. Hypertension 6. Hyperlipidemia Family History Patient reports no known family medical history. Father's side of the family is unknown Maternal family - no known history of dementia. Mother - decreased of meningioma involving brainstem Social History Smoking Status: Never Smoker Alcohol Use: heavy (at least 4-8 beers daily x 50 years) Drug Use: none Marital Status: Housing status: lives alone Occupational Status: retired Allergies Coded Allergies: No Known Allergies (Unverified , 12/04/17) Home Medications Scheduled Allopurinol (Zyloprim), 100 MG PO DAILY Cholecalciferol (Vitamin D3), 2,000 UNITS PO DAILY Ciprofloxacin Hcl (Cipro), 500 MG PO BID Donepezil HCl (Aricept), 5 MG PO DAILY Losartan Potassium (Losartan Potassium), 25 MG PO DAILY Pravastatin Sod (Pravastatin Sodium), 40 MG PO DAILY Review of Systems Limited due to pt's confusion Constitutional: + sweats, No fever, No fatigue Respiratory: No shortness of breath Cardiovascular: No chest pain Abdomen: + problem reported (only small BM in past two days - pt reports stools are brown to occasionally dark in color), No nausea, No vomiting, No diarrhea Genitourinary - Male: + hematuria, + problem reported (Laboy in place x 2 days - per niece not functioning correctly) Neurologic: + problem reported (dementia/confusion) Physical Exam Vital Signs Date Time Temp Pulse Resp B/P (MAP) Pulse Ox O2 Delivery O2 Flow Rate FiO2 12/04/17 10:27 82 19 166/86 96 Room Air 12/04/17 08:51 88 19 154/78 99 Room Air 12/04/17 06:50 98 12/04/17 06:43 36.6 93 16 166/89 98 Room Air General Appearance: WD/WN, no apparent distress Head: normocephalic, atraumatic Eyes: sclerae normal Neck: supple Respiratory/Chest: lungs clear (on anterior), no respiratory distress, no accessory muscle use Cardiovascular: + irregularly irregular Abdomen/GI: normal bowel sounds, non tender, soft Extremities/Musculoskelatal: no calf tenderness, no pedal edema Neurologic/Psych: alert, + disoriented (oriented to person only), + pertinent finding (agitated at times - asking to go home repeatedly) Skin: warm/dry, no rash Diagnostics Laboratory Results Results Past 24 Hours Test 12/04/17 06:55 12/04/17 07:20 Range/Units White Blood Count 7.22 4.8-10.8 K/uL Red Blood Count 3.64 4.7-6.1 M/uL Hemoglobin 11.9 14.0-18.0 g/dL Hematocrit 34.6 42-52 % Mean Corpuscular Volume 95.1 80-100 fL Mean Corpuscular Hemoglobin 32.7 25-34 pg Mean Corpuscular Hemoglobin Concent 34.4 32-36 g/dl Platelet Count 153 130-400 K/uL Mean Platelet Volume 10.2 7.4-10.4 fL Neutrophils (%) (Auto) 80.5 % Lymphocytes (%) (Auto) 6.8 % Monocytes (%) (Auto) 12.0 % Eosinophils (%) (Auto) 0.3 % Basophils (%) (Auto) 0.1 % Neutrophils # (Auto) 5.81 1.4-6.5 K/uL Lymphocytes # (Auto) 0.49 1.2-3.4 K/uL Monocytes # (Auto) 0.87 0.11-0.59 K/uL Eosinophils # (Auto) 0.02 0-0.5 K/uL Basophils # (Auto) 0.01 0-0.2 K/uL RDW Standard Deviation 48.6 36.4-46.3 fL RDW Coefficient of Variation 14.1 11.5-14.5 % Immature Granulocyte % (Auto) 0.3 % Immature Granulocyte # (Auto) 0.02 0.00-0.02 K/uL Sodium Level 126 136-145 mmol/L Potassium Level 3.5-5.1 mmol/L Chloride Level 94 98-107 mmol/L Carbon Dioxide Level 21 21-32 mmol/L Anion Gap 11.0 3-11 mmol/L Blood Urea Nitrogen 22 7-18 mg/dl Creatinine 1.95 0.60-1.40 mg/dl Est Creatinine Clear Calc Drug Dose 44.8 ml/min Estimated GFR () 40.4 Estimated GFR (Non- 34.8 BUN/Creatinine Ratio 11.2 10-20 Random Glucose 136 70-99 mg/dl Calcium Level 8.7 8.5-10.1 mg/dl Total Bilirubin 1.1 0.2-1 mg/dl Direct Bilirubin 0-0.2 mg/dl Aspartate Amino Transf (AST/SGOT) 15-37 U/L Alanine Aminotransferase (ALT/SGPT) 20 12-78 U/L Alkaline Phosphatase 76 45-117 U/L Total Protein 7.6 6.4-8.2 gm/dl Albumin 3.5 3.4-5.0 gm/dl Lipase 1245 73-393 U/L Urine Color RED Urine Appearance CLOUDY CLEAR Urine pH 7.0 4.5-7.5 Urine Specific [place] 1.020 1.000-1.030 Urine Protein 3+ NEG Urine Glucose (UA) TRACE NEG Urine Ketones NEG NEG Urine Occult Blood 3+ NEG Urine Nitrite NEG NEG Urine Bilirubin NEG NEG Urine Urobilinogen NEG NEG Urine Leukocyte Esterase NEG NEG Urine RBC >30 0-4 /hpf Urine WBC >30 0-5 /hpf Urine Epithelial Cells 0-5 0-5 /lpf Urine Bacteria 1+ NEG Microbiology Results 12/04/17 Blood Culture, Ordered Pending 12/04/17 Blood Culture, Ordered Pending Diagnostic Radiology Chest x-ray 12/04/17 - Cardiomegaly with no acute cardiopulmonary abnormality. KUB x-ray 12/04/17 - No renal or ureteral stones. Retroperitoneal U/S 12/04/17 - 1. The kidneys are normal in size and without hydronephrosis. 2. There is an 8.7 cm complex solid mass lesion arising from the lower pole of the left kidney. This should be considered renal cell carcinoma until proven otherwise. Follow-up with a contrast-enhanced abdominal CT scan is recommended for further assessment. 3. The bladder is partially decompressed around a Laboy catheter. 4. Intraluminal debris and shadowing calcifications are noted within the bladder lumen. CT Brain 12/04/17 - 1. There is no hemorrhage, mass effect, or evidence of acute territorial ischemia by CT criteria. 2. There is significant abnormality of the right calvarium and facial bones as T12 above. 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 Metastatic disease is considered much less likely and correlation with the patient's history will be required. This was also seen on the 09/19/2017 MRI. Impression Assessment and Plan 67 y/o male presents to the ED with persistent hematuria, malfunctioning Laboy catheter and dementia/confusion 1. Hematuria with left renal mass found on U/S this morning - presumed renal cell carcinoma based on imaging - Consult urology (ED physician already discussed case with Dr. Dow who requested MRI abdomen/pelvis) - Consult hematology/oncology due to probable RCC - Continue Laboy for now - Check urine and blood cultures - started empiric ceftriaxone 2. Dementia/Confusion - likely multi-factorial (underlying dementia, possible UTI, hyponatremia) - CT brain negative for metastatic disease - Consult neurology for any additional medication recommendations 3. Alcohol abuse - Thiamine/folic acid - Starting gabapentin per protocol - Monitor closely for DTs 4. Hyponatremia/TERESE (obstructive although no hydronephrosis?) - Started gentle IVF with NSS - Recheck PRP in AM 5. Hypertension - Hold losartan 2/2 TERESE Monitor 6. Hyperlipidemia - Continue home pravastatin 7. Code status - discussed with pt's niece, Sharron, who has POA. She would like full resuscitation at this point. She will contact pt's PCP to have a copy of the paperwork for POA/living will sent to the hospital 8. manager clinical services evaluation since patient currently lives alone - suspect it will not be safe for patient to return to this level of care based on his dementia/confusion 9. DVT prophylaxis - SCDs, holding anticoagulation due to ongoing hematuria Case discussed with attending physician Dr. Layne. Chelsea Silvestre PA-C Attending Note: Patient is a 67 yr male with H/O dementia, alcohol use disorder and other problems presents with history of gross hematuria and confusion. Patient received Ativan for agitation and is currently drowsy. He was unable to provide any history.He is oriented only to person earlier as per records. He was found to be have Hyponatremia, TERESE and UA is suggestive of possible UTI. Abdominal Imaging showed findings suggestive of 12 cm heterogeneous mass lesion arising from/replacing the lower pole of left kidney suggestive of renal cell carcinoma until proven otherwise. Urology was consulted and patient was advised to get CT abdomen & pelvis w/IV contrast, and CT angiogram renal arteries to better visualize vena cava which are currently pending. CT head showed no hemorrhage, mass effect, or evidence of acute territorial ischemia by CT criteria. Physical Exam: General Appearance:Moderately built and nourished, no apparent distress, Lethargic Head: normocephalic, Atraumatic Eyes: normal inspection, EOMI Neck: supple, Trachea midline Respiratory/Chest: Normal breath sounds, CTA Cardiovascular: S1, S2, + murmur Abdomen/GI:Soft, Non tender, Bowel sounds present Extremities/Musculoskelatal:normal inspection, Trace edema Neurologic/Psych:Complete neuro exam could not be performed Skin:normal color,warm Assessment and Plan: Renal Mass: Likely RCC Hematuria Possible UTI TERESE Obstructive Uropathy Urology/Oncology consulted for further Input Monitor CBC IV Ceftriaxone FU cultures CT abdomen, chest and CT angiogram renal arteries as per Urology-pending Metabolic Encephalopathy In setting of Dementia, chronic alcohol use CT head reviewed Gentle IV fluids to correct Hyponatremia Neuro Checks Monitor sodium levels Neurology consulted Alcohol withdrawal Protocol I personally reviewed the record. Patient is interviewed and examined at bedside. Patient's care is coordinated with Jessica SILVA. Please refer to the documentation above for details of patient's presentation and for discussion of other issues. Resuscitation Status VTE Prophylaxis Will order VTE Prophylaxis: Yes
[2017-12-04] MEDS: SODIUM CHLORIDE 0.9% 1000ML 1,000 ML IV SCH (14:10)
[2017-12-04] MEDS: CEFTRIAXONE SOD INJ 1 GM in DEXTROSE 5% ADD-VANTAGE 50ML 50 ML IV SCH (14:10)
[2017-12-04] MEDS ORDERED: LORAZEPAM INJ 1 MG in SYRINGE 0.5 ML IV ONE (14:15)
[2017-12-04] MEDS ORDERED: NURSING VERBAL MED ORDER ONE ×2 (15:00→22:30)
[2017-12-04] MEDS ORDERED: LIDOCAINE HCL 1% 20 ML VIAL ONE ×2 (15:05→15:06)
[2017-12-04 15:07] VITALS: BP 172/90; PULSE 80; TEMP 36.7; O2SAT 98; Ht 175.3 cm; Wt 104.2 kg
[2017-12-04] MEDS ORDERED: LIDOCAINE 2% JELLY 5 ML TUBE EXT SCH (15:15)
--- NOTE | 2017-12-04 16:09 | Neurology Consultation ---
Neurology Consultation Date of Consultation: Dec 04, 2017. Attending Physician: Sher Layne MD Primary Care Physician: Mati Cason PA-C Reason for Consultation: progressive dementia confusion History of Present Illness Source: family (niece and daughter of niece) liana is a 67 year old male who was brought to [facility] for hematuria and confusion. Two days prior to admission he was brought to the ED for gross hematuria. he was discharge with a child and Cipro and was to follow up with urology. He is confused. and his niece, Sharron, who is patient's POA is bedside for further information he lives alone and had been taking care of his mother who one day prior to admission. He drinks at least 4-8 beers daily. His confusion has waxed and weaned these past few weeks. he had been driving but very limited. He was started on Aricept during his neurology visit in September 2017 and he was due to follow up with neurology this month. there was a question about whether this was vascular or Lewy body dementia. He currently is laying in bed and is drifting back to sleep during exam. denies CP, SOB, abdominal pain, headaches, N, V. Has been eating his 3 meals per day his niece prepares for him and he microwaves. Past Medical/Surgical History Medical Problems: (1) Altered mental status Status: Acute (2) Hematuria Status: Acute (3) Kidney mass Status: Acute Social History Smoking Status: Former smoker Smokeless Tobacco Use: No Alcohol Use: heavy (at least 4-8 beers daily x 50 years) Drug Use: none Marital Status: Housing Status: lives alone Occupation Status: retired Allergies Coded Allergies: No Known Allergies (Unverified , 12/04/17) Current Inpatient Medications Current Inpatient Medications Medications (Trade) Dose Ordered Sig/Namita Route Start Time Stop Time Status Last Admin Dose Admin Ioversol (Optiray 320) 100 ml UD PRN IV 12/04/17 09:15 12/08/17 09:14 Acetaminophen (Tylenol Tab) 650 mg Q4H PRN PO 12/04/17 11:30 01/03/18 11:29 Ceftriaxone Sodium 1 gm/ Dextrose 50 ml @ 100 mls/hr Q24H IV 12/04/17 14:00 12/06/17 13:59 12/04/17 14:10 100 MLS/HR Sodium Chloride 1,000 ml @ 75 mls/hr [id number] IV 12/04/17 13:45 01/03/18 13:44 12/04/17 14:10 75 MLS/HR Thiamine HCl (Vitamin B-1 Tab) 100 mg DAILY PO 12/04/17 13:45 01/03/18 13:44 Folic Acid (Folvite Tab) 1 mg QAM PO 12/05/17 08:00 01/04/18 08:59 Gadobutrol (Gadavist) 10.5 mmol UD PRN IV 12/04/17 13:00 12/08/17 12:59 Gabapentin (Neurontin Tab) 600 mg Q6H PO 12/04/17 20:00 12/05/17 02:01 Gabapentin (Neurontin Tab) 600 mg Q8H PO 12/05/17 10:00 12/06/17 02:01 Gabapentin (Neurontin Tab) 600 mg Q12H PO 12/06/17 14:00 12/07/17 02:01 Gabapentin (Neurontin Tab) 600 mg Q24H PO 12/08/17 02:00 12/08/17 02:01 Allopurinol (Zyloprim Tab) 100 mg DAILY PO 12/05/17 08:00 01/04/18 07:59 Donepezil HCl (Aricept Tab) 5 mg DAILY PO 12/05/17 08:00 01/04/18 07:59 Losartan Potassium (coZAAR TAB) 25 mg DAILY PO 12/05/17 08:00 01/04/18 07:59 Pravastatin Sodium (Pravachol Tab) 40 mg DAILY PO 12/05/17 08:00 01/04/18 07:59 Cholecalciferol (Vitamin D Tab) 2,000 inter.unit DAILY PO 12/05/17 08:00 01/04/18 07:59 Physical Exam Vital Signs (Past 24 Hrs): Date Time Temp Pulse Resp B/P (MAP) Pulse Ox O2 Delivery O2 Flow Rate FiO2 12/04/17 13:17 72 18 169/78 94 Room Air 12/04/17 11:54 70 17 167/75 96 12/04/17 10:27 82 19 166/86 96 Room Air 12/04/17 08:51 88 19 154/78 99 Room Air 12/04/17 06:50 98 12/04/17 06:43 36.6 93 16 166/89 98 Room Air Physical Exam: Constitutional: appearance nourished, obese Ears, Nose, Mouth and Throat: mucous membranes moist, no injection and skin normal, eyes normal Cardiovascular: normal S-1 and S-2 and regular rate and rhythm Respiratory: course breath sounds Musculoskeletal: none pitting peripheral edema Skin: no stigmata of neurocutaneous disease noted and normal and intact Eyes: will not cooperate NEUROLOGIC EXAMINATION: Mental status: Alert with name but then drifts off to sleep between questions Cranial Nerves minimal facial expression Reflexes: Deep tendon reflexes were symmetrical and graded 2/5. Plantar responses were flexor. Sensory: to vibration or light touch Coordination: unable to cooperate Gait/Stance: Posture lying in bed Laboratory Results Past 24 Hours: 12/04/17 06:55 Red Blood Count 3.64, Mean Corpuscular Volume 95.1, Mean Corpuscular Hemoglobin 32.7, Mean Corpuscular Hemoglobin Concent 34.4, Mean Platelet Volume 10.2, Neutrophils (%) (Auto) 80.5, Lymphocytes (%) (Auto) 6.8, Monocytes (%) (Auto) 12.0, Eosinophils (%) (Auto) 0.3, Basophils (%) (Auto) 0.1, Neutrophils # (Auto ) 5.81, Lymphocytes # (Auto) 0.49, Monocytes # (Auto) 0.87, Eosinophils # (Auto ) 0.02, Basophils # (Auto) 0.01 12/04/17 06:55 Test 12/04/17 06:55 12/04/17 07:20 12/04/17 15:41 White Blood Count 7.22 K/uL (4.8-10.8) Red Blood Count 3.64 M/uL (4.7-6.1) Hemoglobin 11.9 g/dL (14.0-18.0) Hematocrit 34.6 % (42-52) Mean Corpuscular Volume 95.1 fL (80-100) Mean Corpuscular Hemoglobin 32.7 pg (25-34) Mean Corpuscular Hemoglobin Concent 34.4 g/dl (32-36) Platelet Count 153 K/uL (130-400) Mean Platelet Volume 10.2 fL (7.4-10.4) Neutrophils (%) (Auto) 80.5 % Lymphocytes (%) (Auto) 6.8 % Monocytes (%) (Auto) 12.0 % Eosinophils (%) (Auto) 0.3 % Basophils (%) (Auto) 0.1 % Neutrophils # (Auto) 5.81 K/uL (1.4-6.5) Lymphocytes # (Auto) 0.49 K/uL (1.2-3.4) Monocytes # (Auto) 0.87 K/uL (0.11-0.59) Eosinophils # (Auto) 0.02 K/uL (0-0.5) Basophils # (Auto) 0.01 K/uL (0-0.2) RDW Standard Deviation 48.6 fL (36.4-46.3) RDW Coefficient of Variation 14.1 % (11.5-14.5) Immature Granulocyte % (Auto) 0.3 % Immature Granulocyte # (Auto) 0.02 K/uL (0.00-0.02) Anion Gap 11.0 mmol/L (3-11) Est Creatinine Clear Calc Drug Dose 44.8 ml/min Estimated GFR () 40.4 Estimated GFR (Non- 34.8 BUN/Creatinine Ratio 11.2 (10-20) Calcium Level 8.7 mg/dl (8.5-10.1) Total Bilirubin 1.1 mg/dl (0.2-1) Direct Bilirubin mg/dl (0-0.2) Aspartate Amino Transf (AST/SGOT) U/L (15-37) Alanine Aminotransferase (ALT/SGPT) 20 U/L (12-78) Alkaline Phosphatase 76 U/L (45-117) Total Protein 7.6 gm/dl (6.4-8.2) Albumin 3.5 gm/dl (3.4-5.0) Lipase 1245 U/L (73-393) Urine Color RED Urine Appearance CLOUDY (CLEAR) Urine pH 7.0 (4.5-7.5) Urine Specific [place] 1.020 (1.000-1.030) Urine Protein 3+ (NEG) Urine Glucose (UA) TRACE (NEG) Urine Ketones NEG (NEG) Urine Occult Blood 3+ (NEG) Urine Nitrite NEG (NEG) Urine Bilirubin NEG (NEG) Urine Urobilinogen NEG (NEG) Urine Leukocyte Esterase NEG (NEG) Urine RBC >30 /hpf (0-4) Urine WBC >30 /hpf (0-5) Urine Epithelial Cells 0-5 /lpf (0-5) Urine Bacteria 1+ (NEG) Imaging MRI abdomen- . There is an approximately 12 cm heterogeneous mass lesion arising from/replacing the lower pole of left kidney as above. This should be considered renal cell carcinoma until proven otherwise. The mass lesion invades the left renal pelvis and also likely invades the left renal vein. Pathologically enlarged left periaortic nodes are consistent with regional metastasis. CT head-There is no hemorrhage, mass effect, or evidence of acute territorial ischemia by CT criteria. There is significant abnormality of the right calvarium and facial bones as T12 above. 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 Metastatic disease is considered much less likely and correlation with the patient's history will be required. This was also seen on the 09/19/2017 MRI. Impression 67 year old progressive confusion and new diagnosed RCC with mets Plan 1. nephrology for further input 2. will need biopsy of renal mass 3. oncology /hematology once renal mass has been biopsied 4. hematuria - child in place- urology does not feel the hematuria is related to RCC. will need further evaluation 5. confusion - once medical issues are sorted out will need readdressed further recommendations to follow I have seen and discussed above patient with Dr Noris Bergeron, neurology Hx reviewed, dw pt niece, POA. Pt has been sedated, not reexamind. Dr Medley and Jann Lind saw pt as outp 2 months ago. MRI brain at that time atrophy. Thought possible Lewy Body Dementia with Parkinsonism. In light of abnl MRI pelvis, poss mets renal carcinoma and hx of fairly rapidly progressive cognitive dysfunction, rec MRI brain with and without. We will follow with you. MONICA Bergeron MD
[2017-12-04 16:13] VITALS: BP 163/99; PULSE 89; TEMP 36.5; O2SAT 98
--- NOTE | 2017-12-04 16:23 | Urology Consultation ---
History General Date of Service: Dec 04, 2017. Chief Complaint: Hematuria, left renal mass Primary Care Physician: Mati Cason PA-C Pt seen a urologist before?: No History of Present Illness 67 YO male, gross hematuria, large left renal mass. Hematuria Patient reports first episode of gross hematuria this past Monday, reported to [facility] ER. Was spontaneously voiding without difficulty prior to ER. Patient was unable to void once in the ER and indwelling Laboy was placed, and was subsequently obstructed bringing patient to the ER this AM. 16F catheter was replaced by ER, patient was admitted. Catheter obstructed once again, nursing unable to irrigate. PVR 400+ I was also unable to irrigate despite manipulation. Catheter was removed, patient spontaneously voided 25ml, almost entirely clot. Was unable to drain bladder further. I personally placed a 20F coude, bladder drained 500ml. I hand irrigated the bladder with 240ml sterile water, removing copious amounts of clot. Patient reports feeling more comfortable now. Catheter draining pink urine into bag. Left renal mass 8.7 cm complex solid mass discovered on US this morning in the ER. Advised follow up MRI abdomen to better visualize and chest xray. Creatinine elevated at 1.95 Imaging Imaging: MRI Images were done at: [facility] ER Problem List Medical Problems: (1) Altered mental status Status: Acute (2) Hematuria Status: Acute (3) Kidney mass Status: Acute Past History alcohol addiction, dementia (confusion x a few months), diabetes, gout Family History Patient reports no known family medical history. Social History Marital status: Housing status: lives alone Occupation status: retired History of MDRO No Allergies Coded Allergies: No Known Allergies (Unverified , 12/04/17) Medications Home Medications: Home Meds and Scripts Medications Dose Route/Sig Max Daily Dose Days Date Category Cipro (Ciprofloxacin Hcl) 500 Mg Tab 500 Mg PO BID 12/02/17 Rx Aricept (Donepezil HCl) 5 Mg Tab 5 Mg PO DAILY 12/02/17 Reported Vitamin D3 (Cholecalciferol) 2,000 Unit Tab 2,000 Units PO DAILY 12/02/17 Reported Zyloprim (Allopurinol) 100 Mg Tab 100 Mg PO DAILY 12/02/17 Reported Losartan Potassium 25 Mg Tab 25 Mg PO DAILY 12/02/17 Reported Pravastatin Sodium (Pravastatin Sod) 40 Mg Tab 40 Mg PO DAILY 12/02/17 Reported Inpatient Medications: Current Inpatient Medications Medications (Trade) Dose Ordered Sig/Namita Route Start Time Stop Time Status Last Admin Dose Admin Ioversol (Optiray 320) 100 ml UD PRN IV 12/04/17 09:15 12/08/17 09:14 Acetaminophen (Tylenol Tab) 650 mg Q4H PRN PO 12/04/17 11:30 01/03/18 11:29 Ceftriaxone Sodium 1 gm/ Dextrose 50 ml @ 100 mls/hr Q24H IV 12/04/17 14:00 12/06/17 13:59 12/04/17 14:10 100 MLS/HR Sodium Chloride 1,000 ml @ 75 mls/hr [id number] IV 12/04/17 13:45 01/03/18 13:44 12/04/17 14:10 75 MLS/HR Thiamine HCl (Vitamin B-1 Tab) 100 mg DAILY PO 12/04/17 13:45 01/03/18 13:44 Folic Acid (Folvite Tab) 1 mg QAM PO 12/05/17 08:00 01/04/18 08:59 Gadobutrol (Gadavist) 10.5 mmol UD PRN IV 12/04/17 13:00 12/08/17 12:59 Gabapentin (Neurontin Tab) 600 mg Q6H PO 12/04/17 20:00 12/05/17 02:01 Gabapentin (Neurontin Tab) 600 mg Q8H PO 12/05/17 10:00 12/06/17 02:01 Gabapentin (Neurontin Tab) 600 mg Q12H PO 12/06/17 14:00 12/07/17 02:01 Gabapentin (Neurontin Tab) 600 mg Q24H PO 12/08/17 02:00 12/08/17 02:01 Allopurinol (Zyloprim Tab) 100 mg DAILY PO 12/05/17 08:00 01/04/18 07:59 Donepezil HCl (Aricept Tab) 5 mg DAILY PO 12/05/17 08:00 01/04/18 07:59 Losartan Potassium (coZAAR TAB) 25 mg DAILY PO 12/05/17 08:00 01/04/18 07:59 Pravastatin Sodium (Pravachol Tab) 40 mg DAILY PO 12/05/17 08:00 01/04/18 07:59 Cholecalciferol (Vitamin D Tab) 2,000 inter.unit DAILY PO 12/05/17 08:00 01/04/18 07:59 Review of Systems Review of Systems Constitutional: No fever, No chills Eyes: No blurred vision Neurological: + see HPI, No numbness/tingling Gastrointestinal: + abdominal pain, No nausea, No vomiting Cardiovascular: No chest pain Respiratory: No shortness of breath Ears / Nose / Throat: No hearing loss Psychologic / Mental: + nervous, + trouble remembering Male : + see HPI, + urinary retention, + blood in urine Physical Exam Vital Signs: Vital Signs Past 12 Hours Date Time Temp Pulse Resp B/P (MAP) Pulse Ox O2 Delivery O2 Flow Rate FiO2 12/04/17 13:17 72 18 169/78 94 Room Air 12/04/17 11:54 70 17 167/75 96 12/04/17 10:27 82 19 166/86 96 Room Air 12/04/17 08:51 88 19 154/78 99 Room Air 12/04/17 06:50 98 12/04/17 06:43 36.6 93 16 166/89 98 Room Air Physical Exam: General Appearance: + mild distress (bladder pain/retention) Eyes: bilateral eyes normal inspection ENT: hearing grossly normal Neck: no JVD Respiratory/Chest: no respiratory distress, no accessory muscle use Cardiovascular: no JVD Gastrointestinal: Bladder: palpable, tender Renal: pertinent finding Genitourinary - Male: Penis: normal penis, circumcised Urethral Meatus: normal urethral meatus Testes: normal testes Epididymides: normal epididymides Scrotum: normal scrotum, rash (irritation) Anus / Perineum: normal anus/perineum Extremities: normal inspection Neurologic/Psychiatric: alert, + disoriented Skin: normal color Assessment & Plan Assessment & Plan Imaging: CT Case discussed and imaging reviewed with Dr. Dow. Left renal mass MRI abdomen reviewed, complex mass with renal vein involvement. Spoke with radiologist who recommended repeat CT abdomen & pelvis w/IV contrast , and CT angiogram renal arteries to better visualize vena cava. Will coordinate. Abnormal chest xray, will coordinate CT chest. Will check LDH and Amylase. Patient NPO now. Will consult nephrology for further input. Findings discussed with patient's niece (POA). Hematuria Unlikely that renal mass is causative of the amount of hematuria that this patient is experiencing. 20F coude Laboy to remain in place. Clot successfully irrigated and Laboy is patient. Continue hand irrigation and bladder scans PRN if suspecting catheter obstruction. Will start Ditropan for bladder spasm pain. Thank you for the consult, will continue to closely follow along with primary service. Attending Note: Patient examined and discussion with family and patient. GH with retention. 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 Long discussion of findings. Concern with RCC and large tumor. Discussed need for surgery on an urgent basis, however also major concerns for full metastatic workup with staging imaging. Due to Renal Vein thrombus with IVC thrombus concern for possible need for thrombectomy. Patient also actively bleeding, possibly from renal mass. Currently finalizing workup and managing acute bleed. Will try to facilitate transfer to larger center which will have vascular and surgical oncology support. Approx 30 mins with family discussing findings and options. Will monitor closely and continue critical management while admitted.
--- NOTE | 2017-12-04 18:55 | Progress Note ---
Progress Note Date of Service Dec 04, 2017. Progress Note Patient is accepted by at [facility]. Discussed with (Urology) Who recommended to get MRV and possibly Transesophageal ECHO if patient still at [facility].
--- NOTE | 2017-12-04 19:07 | Discharge Instructions ---
Discharge Instructions Date of Service Dec 04, 2017. 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 Additional Information Patient informed of condition: No (Patient confused) Advance Directives: Yes DNR: Yes Level of Care: Other (Telemetry) Communicable Disease: No Prognosis: Stable Laboy Catheter: Yes Current Hospital Diet Patient's current hospital diet: AHA Diet (Heart Healthy) Discharge Diet Recommended Diet: AHA Diet (Heart Healthy) Pending Studies Studies pending at discharge: yes List of pending studies: MRV, Brain MRI Physician Orders On Transfer IV Therapy: IV NSS, IV Ceftriaxone Additional Orders: PLEASE REVIEW PAPER MEDICATION RECONCILIATION FOR COMPLETE MEDICATION LIST Medical Emergencies . Who to Call and When: Medical Emergencies: If at any time you feel your situation is an emergency, please call 911 immediately. . Non-Emergent Contact Non-Emergency issues call your: Primary Care Provider, [employer], Neurologist, Surgeon, Urologist . . "Provider Documentation" section prepared by Sher Layne. . Core Measure Problem Core Measures: None
--- NOTE | 2017-12-04 19:11 | Discharge Summary ---
Discharge Summary Date of Service Dec 04, 2017. 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, Acute renal insufficiency Secondary Diagnoses/Problems: Alcohol Abuse, Hyponatremia, Possible UTI, Chronic atrial Fibrillation, Dementia , Hypertension, Hyperlipidemia Consultations: Urology, Neurology, Nephrology, Oncology Pending Studies/Follow-Up: Follow up with at [facility] for further management Medication Reconciliation Continued Medications: Allopurinol (Zyloprim) 100 Mg Tab 100 MG PO DAILY, TAB Cholecalciferol (Vitamin D3) 2,000 Unit Tab 2000 UNITS PO DAILY, TAB Donepezil HCl (Aricept) 5 Mg Tab 5 MG PO DAILY, TAB Losartan Potassium (Losartan Potassium) 25 Mg Tab 25 MG PO DAILY Pravastatin Sod (Pravastatin Sodium) 40 Mg Tab 40 MG PO DAILY Discontinued Medications: Ciprofloxacin Hcl (Cipro) 500 Mg Tab 500 MG PO BID, #14 TAB Admission Information HPI (per Admitting provider): 67 y/o male presents to ED today with continued hematuria and confusion. Two days ago, pt was seen in the ED with new-onset of gross hematuria. Apparently evaluated and sent home from the ED with a Laboy and placed on Cipro and instructed to follow-up with urology outpatient. Urine culture from this visit was contaminated. Pt is currently very confused so history obtained from iris Sharron, who is patient's POA. No known history of hematuria or prostate issues prior to current episode of symptoms. Pt has had continued hematuria over the weekend and the Laboy seems to be intermittently functioning. Niece reports pt will develop significant pressure over the bladder and the urge to urinate then has intermittent output in the Laboy bag. She describes the output as thick and frankly bloody since pt was seen in ED. 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 He lives alone but would go to mother's house twice daily to assist with her care. Currently, pt is seen in the ED and is agitated and confused. He reports that he "just got [place] [address]" and now wants to go home. Since Laboy was changed in ED today, he reports relief of the suprapubic pressure and urge to urinate that he has been having intermittently for past two days. Denies N/V , abdominal pain. No documented fevers. Appetite has been good - pt asking to eat when seen. Niece reports that patient was sweating yesterday - she attributes this to the fact that she did not allow him to drink alcohol yesterday when he typically drinks at least 4-8 beers/day. Pt does have a history of underlying dementia diagnosed within the past six months. Niece reports that the onset of confusion was quite acute and that pt's mental status often waxes and wanes since diagnosis. She is not sure that pt understands that his mother yesterday. There is a question of Lewy Body Dementia vs Parkinson's that is being evaluated by neurology. Physical Exam (per Admitting): General Appearance: WD/WN, no apparent distress Head: normocephalic, atraumatic Eyes: sclerae normal Neck: supple Respiratory/Chest: lungs clear (on anterior), no respiratory distress, no accessory muscle use Cardiovascular: + irregularly irregular Abdomen/GI: normal bowel sounds, non tender, soft Extremities/Musculoskelatal: no calf tenderness, no pedal edema Neurologic/Psych: alert, + disoriented (oriented to person only), + pertinent finding (agitated at times - asking to go home repeatedly) Skin: warm/dry, no rash Hospital Course Patient is a 67 yr male with H/O dementia, alcohol use disorder, HTN, HLP, Chronic atrial Fibrillation and other problems presents with history of gross hematuria and confusion. Patient received Ativan for agitation and is currently drowsy. He was unable to provide any history.He is oriented only to person earlier as per records. He was found to be have Hyponatremia, TERESE and UA is suggestive of possible UTI. Abdominal Imaging showed findings suggestive of 12 cm heterogeneous mass lesion arising from/replacing the lower pole of left kidney suggestive of renal cell carcinoma until proven otherwise. Urology was consulted and patient was advised to get MRV to better visualize vena cava. CT head showed no hemorrhage, mass effect, or evidence of acute territorial ischemia by CT criteria but had findings suggestive of significant abnormality of the right calvarium and facial bones as T12 above. 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 Metastatic disease is considered much less likely and correlation with the patient's history will be required. 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 Patient was thought to require surgery on an urgent basis also however full metastatic work up with staging Imaging would be required to see if he is a candidate for surgery. Due to Renal Vein thrombus with IVC thrombus concern for possible need for thrombectomy and also since patient also actively bleeding, possibly from renal mass, Patient was thought to benefit from transferring to a tertiary care center with vascular and surgical oncology support for further management. Case was discussed by Urologist with at [facility] who accepted the patient for further management. 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 Patient was thought to require surgery on an urgent basis also however full metastatic work up with staging Imaging would be required to see if he is a candidate for surgery. Due to Renal Vein thrombus with IVC thrombus concern for possible need for thrombectomy and also since patient also actively bleeding, possibly from renal mass, Patient was thought to benefit from transferring to a tertiary care center with vascular and surgical oncology support for further management. Case was discussed by Urologist with at [facility] who accepted the patient for further management. Metabolic Encephalopathy In setting of Dementia, chronic alcohol use CT head reviewed Gentle IV fluids to correct Hyponatremia Neuro Checks Monitor sodium levels Neurology consulted Alcohol withdrawal Protocol Aspiration precautions MRI Brain pending Alcohol abuse Thiamine/folic acid Started gabapentin per protocol Monitor closely for DTs Hyponatremia: Likely 2/2 chronic alcohol use DD: SIADH from renal cell carcinoma Acute renal Insufficiency: IV fluids Avoid Nephrotoxic agents as able Hold Losartan Chronic atrial Fibrillation Not on meds as per family (Patient refused) Not on blood thinners Dementia Continue home meds Follows with Neurology as outpatient Hypertension Hold Losartan monitor Hyperlipidemia on Statins DVT Px: SCDs Re: Hematuria Code Status: Full Code Disposition; Transfer to [facility] for further management Total time spent on discharge = 45 minutes This includes examination of the patient, discharge planning, medication reconciliation, and communication with other providers. Discharge Instructions Discharge Instructions Date of Service Dec 04, 2017. 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 Additional Information Patient informed of condition: No (Patient confused) Advance Directives: Yes DNR: No Level of Care: Other (Telemetry) Communicable Disease: No Prognosis: Stable Laboy Catheter: Yes Current Hospital Diet Patient's current hospital diet: AHA Diet (Heart Healthy) Discharge Diet Recommended Diet: AHA Diet (Heart Healthy) Pending Studies Studies pending at discharge: yes List of pending studies: MRV, Brain MRI Physician Orders On Transfer IV Therapy: IV NSS, IV Ceftriaxone Additional Orders: PLEASE REVIEW PAPER MEDICATION RECONCILIATION FOR COMPLETE MEDICATION LIST Medical Emergencies . Who to Call and When: Medical Emergencies: If at any time you feel your situation is an emergency, please call 911 immediately. . Non-Emergent Contact Non-Emergency issues call your: Primary Care Provider, Director [employer] Architecture, Neurologist, Surgeon, Urologist . . "Provider Documentation" section prepared by Sher Layne. . Core Measure Problem Core Measures: None <Electronically signed by Sher Layne MD> Signed: 12/04/17 2817 Signed: The status of this report is Signed * If report status is Draft, the document has not been finalized by the responsible provider.
[2017-12-04 20:00] VITALS: O2SAT 98
[2017-12-04] MEDS ORDERED: GABAPENTIN 600MG Q6H DOSE PO SCH (20:00)
[2017-12-04 20:06] VITALS: BP 163/99; PULSE 89; TEMP 36.5; O2SAT 98
[2017-12-04 20:36] VITALS: BP 159/79; TEMP 37.3; O2SAT 97
[2017-12-04 23:19] VITALS: BP 162/76; PULSE 81; TEMP 36.7; O2SAT 98
[2017-12-05] MEDS: GABAPENTIN 600MG Q6H DOSE PO SCH ×2 (00:02→06:00)
[2017-12-05] MEDS ORDERED: GADAVIST IV PRN (04:10)
[2017-12-05] MEDS: SODIUM CHLORIDE 0.9% 1000ML 1,000 ML IV SCH ×2 (04:47→16:43)
[2017-12-05 04:49] VITALS: BP 162/91; PULSE 87; TEMP 36.8; O2SAT 97
[2017-12-05 06:26] VITALS: BP 169/77; PULSE 88; TEMP 36.6; O2SAT 98
[2017-12-05 06:33] LABS: HEMATOCRIT 31.2 % (42-52); HEMOGLOBIN 10.8 g/dL (14.0-18.0); MEAN CELL VOLUME 96.3 fL (80-100); MEAN CORPUSCULAR HEMOGLOBIN 33.3 pg (25-34); MEAN CORPUSCULAR HGB CONC 34.6 g/dl (32-36); MEAN PLATELET VOLUME 9.9 fL (7.4-10.4); PLATELET COUNT 132 K/uL (130-400); RED CELL DISTRIBUTION WIDTH CV 14.1 % (11.5-14.5); RED CELL DISTRIBUTION WIDTH SD 49.1 fL (36.4-46.3); WHITE BLOOD COUNT 7.17 K/uL (4.8-10.8)
--- NOTE | 2017-12-05 06:54 | DIAGNOSTIC IMAGING REPORT ---
MRI OF THE BRAIN WITHOUT AND WITH IV CONTRAST CLINICAL HISTORY: Confusion. Left renal mass. Evaluate for metastatic disease. COMPARISON STUDY: MRI of the brain September 19, [address] December 04, 2017. TECHNIQUE: Utilizing a 1.5 Thea magnet and dedicated coil, multiplanar, multiecho imaging of the brain was performed pre and postcontrast administration. IV administration of 10 mL of Gadavist contrast was uneventful. Thin cut T1 post contrast imaging was performed with multiplanar reconstructions. FINDINGS: Note is made of a 1 cm focus of restricted diffusion within the superior right thalamus which is new since MRI September 19, 2017. There is no mass effect. No acute intracranial hemorrhage is present. Marked atrophy is noted. This accounts for ventricular dilatation. The basilar cisterns are patent. There are no extra-axial collections. No intracranial mass or parenchymal pathologic enhancement is noted. Note is again made of extensive marrow signal abnormality involving the right parietal and temporal bones with bony expansion, including expansion of the right sphenoid wing. This is unchanged since MRI of September 19, 2017. Associated enhancement is noted. Inner table of the calvarium remains intact. Flow-voids for the major intracranial vessels are present. IMPRESSION: 1. 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 No mass effect. No hemorrhage. 2. No parenchymal metastases. 3. No change in extensive calvarial signal abnormality within the right parietal and temporal bones with associated bony expansion, including expansion of the sphenoid wing since MRI of September 19, 2017. 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 Paget's disease could appear similar. Metastatic disease is within the differential although considered much less likely. Electronically signed by: Joshua Sanford M.D. 12/05/2017 6:53 AM Dictated Date/Time: 12/05/2017 6:41 AM
--- NOTE | 2017-12-05 07:02 | DIAGNOSTIC IMAGING REPORT ---
MRA ABDOMEN COMBO CLINICAL HISTORY: attention to ivc, renal veins; hx ivc, renal vein thrombus MS TECHNIQUE: Multi axial MRI acquisition. nondiagnostic study due to patient motion. COMPARISON STUDY: MRI abdomen 12/04/2017 FINDINGS: 12 cm left renal mass. Minimal localized infiltrative change to the perinephric fat region. Right kidney is uniform. Abdomen aorta is normal in course and caliber. The inferior vena cava is poorly evaluated due to severe artifact throughout. There is expansion of the proximal left renal vein adjacent to the medial aspect of the kidney having a maximum diameter of 3.5 cm. There is a suggestion of a possible linear extension of soft tissue within the left renal vein to the juncture with the inferior vena cava. This potentially, however is at least in part artifact. Liver spleen and pancreas are uniform. IMPRESSION: 1. Near nondiagnostic study. 2. 12 cm left renal mass with perinephric infiltrative change. 3. 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 4. Potential extension to the distal aspects of the left renal vein with cortical involvement at the left renal vein/inferior vena cava junction. Components of this may relate to artifact. The above report was generated using voice recognition software. It may contain grammatical, syntax or spelling errors. Electronically signed by: Jose Teague M.D. 12/05/2017 7:00 AM Dictated Date/Time: 12/05/2017 6:51 AM
[2017-12-05 07:03] LABS: CALCIUM 8.3 mg/dl (8.5-10.1); CREATININE 1.87 mg/dl (0.60-1.40); POTASSIUM 3.7 mmol/L (3.5-5.1)
[2017-12-05] MEDS ORDERED: LOSARTAN POTASSIUM 25 MG TAB PO SCH (08:00)
[2017-12-05] MEDS ORDERED: PRAVASTATIN SOD 40 MG TAB PO SCH (08:00)
[2017-12-05] MEDS ORDERED: CHOLECALCIFEROL 1000 INTER.UNIT TAB PO SCH (08:00)
[2017-12-05] MEDS ORDERED: ALLOPURINOL 100 MG TAB PO SCH (08:00)
[2017-12-05] MEDS ORDERED: DONEPEZIL HCL 5 MG TAB PO SCH (08:00)
--- NOTE | 2017-12-05 09:10 | Clinical Documentation Query ---
CLINICAL DOCUMENTATION QUERY Dr. VALENZUELA, In your clinical opinion is this patient being managed for: ( x ) Cerebral infarction, POA ( ) Not Agree ( ) Other explanation of clinical findings (No explanation is considered a No Response) ( ) Unable to determine ( ) Need to Discuss (Phone CDS or qliq) (No discussion is considered a No Response) The medical record reflects the following clinical findings, treatment, and risk factors. Clinical Indicators: 67 yo male presenting with confusion and hematuria, found to have a suspected RCC. 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 Risk Factors: age, RCC, alcohol abuse Please clarify and document your clinical opinion in the progress notes and discharge summary. Terms such as "probable", "suspected", "likely", "questionable", "possible", or "still to be ruled out" are acceptable. IF IN AGREEMENT, YOU MUST DOCUMENT ABOVE DIAGNOSTIC STATEMENT IN DAILY PROGRESS NOTES AND DISCHARGE SUMMARY. This document is not part of the patient's record. Thank You, Salma Bird, SPENCER [phone]
[2017-12-05] MEDS: THIAMINE HCL 100 MG TAB PO SCH (09:42)
[2017-12-05] MEDS ORDERED: GABAPENTIN 600MG Q8H DOSE PO SCH ×2 (10:00→14:00)
[2017-12-05 11:33] VITALS: BP 152/74; PULSE 76; TEMP 37; O2SAT 98
--- NOTE | 2017-12-05 12:44 | DIAGNOSTIC IMAGING REPORT ---
BONE SCAN WHOLE BODY CLINICAL HISTORY: Renal mass. COMPARISON STUDY: MRI of the abdomen December 04, 2017 and MRI the brain December 05, 2017. TECHNIQUE: 26.7 mCi of technetium 99m MDP was injected IV at 8 am on MRI December 05, 2017. 3 hours following injection, whole body imaging was performed in the anterior and posterior projections. FINDINGS: Note is made of a photopenic defect within the mid to lower pole of the left kidney due to the mass shown on MRI of December 04, 2017. There is asymmetric increased tracer within the upper pole of the left kidney. There is mild diffuse radiotracer uptake within the right aspect of the calvarium which corresponds to the finding on recent CT and MRI. No additional foci of abnormal skeletal uptake are identified with exception of mild multifocal uptake within the shoulders, right knee and left foot which is degenerative. IMPRESSION: 1. Mild diffuse radiotracer uptake within the right aspect of the calvarium which corresponds to the mixed sclerotic and lytic expansile lesion on recent CT and MRI. This remains nonspecific however fibrous dysplasia or Paget's disease is favored. Metastatic disease is within the differential but considered much less likely. 2. Photopenic defect within the mid to lower pole of the left kidney due to the large left renal mass. Asymmetric increased radiotracer within the upper pole of the left kidney which may be related to venous invasion by the suspected renal cell carcinoma. Electronically signed by: Joshua Sanford M.D. 12/05/2017 12:43 PM Dictated Date/Time: 12/05/2017 12:34 PM
[2017-12-05] MEDS: SUCRALFATE 1 GM/10 ML UDC PO SCH ×2 (13:38→16:43)
[2017-12-05] MEDS: CEFTRIAXONE SOD INJ 1 GM in DEXTROSE 5% ADD-VANTAGE 50ML 50 ML IV SCH (13:57)
[2017-12-05 15:12] VITALS: BP 152/79; PULSE 108; TEMP 36.8; O2SAT 99
[2017-12-05] MEDS ORDERED: LORAZEPAM 2 MG/ML 1 ML VIAL IV PRN (16:00)
[2017-12-05] MEDS ORDERED: LORAZEPAM INJ 1 MG in SYRINGE 0.5 ML IV PRN (16:45)
[2017-12-05 17:00] VITALS: BP 152/79; PULSE 108; TEMP 36.8; O2SAT 99
[2017-12-05] MEDS ORDERED: LORAZEPAM 2 MG/ML 1 ML VIAL IV STA (18:26)
--- NOTE | 2017-12-05 20:12 | Progress Note ---
Progress Note Date of Service Dec 05, 2017. Progress Note Patient's Family provided the Patient's advanced directives which states patient prefers to be DNI/DNR. Patient's daughter at bedside agreed that the patient code status be changed to DNI/DNR according to patient's living will. Code Status was updated accordingly.
[2017-12-06] MEDS ORDERED: GABAPENTIN 600MG Q12H DOSE PO SCH ×2 (14:00→18:00)
[2017-12-08] MEDS ORDERED: GABAPENTIN 600MG X1 DOSE PO SCH ×2 (02:00→06:00)
== END 2017-12-05 21:48 | disposition short-term general hospital (02) | DRG 686 ==
LOC: C.EDB 06:39 → C.4E 11:39 → ENRESERV 11:49 → C.2T 20:26
PROVIDERS: ADMIT Internal Medicine; ATTEND Hospitalist
PROC: 0T2BX0Z Change Drainage Device in Bladder, External Approach (ICD-10-PCS; principal; 2017-12-04)
DX: C64.2 Malignant neoplasm of left kidney, except renal pelvis (principal); I63.9 Cerebral infarction, unspecified; I82.220 Acute embolism and thrombosis of inferior vena cava; G93.41 Metabolic encephalopathy; I82.3 Embolism and thrombosis of renal vein; E22.2 Syndrome of inappropriate secretion of antidiuretic hormone; E87.1 Hypo-osmolality and hyponatremia; N39.0 Urinary tract infection, site not specified; F02.81 Dementia in other diseases classified elsewhere, unspecified severity, with behavioral disturbance; R31.0 Gross hematuria; N13.9 Obstructive and reflux uropathy, unspecified; G31.83 Neurocognitive disorder with Lewy bodies; N28.9 Disorder of kidney and ureter, unspecified; F10.10 Alcohol abuse, uncomplicated; I48.2 Chronic atrial fibrillation; R93.0 Abnormal findings on diagnostic imaging of skull and head, not elsewhere classified; I11.9 Hypertensive heart disease without heart failure; E78.5 Hyperlipidemia, unspecified; M10.9 Gout, unspecified; Z79.899 Other long term (current) drug therapy; Z66 Do not resuscitate; Z84.89 Family history of other specified conditions; M06.9 Rheumatoid arthritis, unspecified